=== PATIENT | female | born 1995 | race Caucasian/White ===

== ENCOUNTER 2017-02-05 10:58 | Emergency (ER) | payer BC, OTHER ==
[~2017-02-05] VITALS: Ht 162.6 cm; Wt 69.1 kg
[~2017-02-05 10:58] MED LIST: ACYC-114 PO; ACYC-57 PO; CIPR500T87 PO; DOCU-30 PO; DOXY100V9; ETOD400T PO; FERR325T20 PO; HYDR1TAB19; IBUP-1222 PO; IBUP800T PO; INSU100C5 SQ; INSU100I11; INSU100I13; INSU100V8 SQ; NORG1TAB31 PO; ONDA4TAB10 PO; OXYC-302 PO; OXYC1TAB7 PO; PREN1TAB56 PO; SERT50TA PO; VANC1VIA3 PO
[2017-02-05 11:51] LABS: HEMOGLOBIN 13.9 g/dL (11.7-16.4)
[2017-02-05] MEDS ORDERED: METOCLOPRAMIDE 5 MG/ML, 2ML ONE (11:53)
[2017-02-05] MEDS ORDERED: DIPHENHYDRAMINE 50 MG/ML, 1ML ONE (11:53)
[2017-02-05] MEDS ORDERED: DIPHENHYDRAMINE 50 MG/ML, 1ML IVPush ONE (12:00)
[2017-02-05] MEDS ORDERED: SODIUM CHLORIDE FLUSH 10ML SYR IVF ONE (12:00)
[2017-02-05] MEDS ORDERED: METOCLOPRAMIDE 5 MG/ML, 2ML IVPush ONE (12:00)
[2017-02-05] MEDS ORDERED: SODIUM CHLORIDE 0.9% 1,000ML IVBOLUS ONE (12:00)
[2017-02-05 12:04] LABS: BLOOD UREA NITROGEN 6 mg/dL (7-18)
[2017-02-05] MEDS ORDERED: INSU100V9 SC (13:29)
[2017-02-05 13:30] VITALS: BP 131/85
== END 2017-02-05 14:07 | disposition home or self-care (01) ==
LOC: ED 12:49
DX: H53.131 Sudden visual loss, right eye (principal); E11.65 Type 2 diabetes mellitus with hyperglycemia; Z79.4 Long term (current) use of insulin; Z88.6 Allergy status to analgesic agent; Z90.89 Acquired absence of other organs
CPT/HCPCS: 36415; 70450; 80048; 82040; 85025; 93005; 96361; 96374; 96375; 99285; J1200; J2765; J7030

== ENCOUNTER 2017-04-20 09:31 | Emergency (ER) | payer BC ==
[~2017-04-20] VITALS: Ht 162.6 cm; Wt 63.0 kg
[~2017-04-20 09:31] MED LIST changes: +INSU100V9 SC
[2017-04-20] MEDS ORDERED: SODIUM CHLORIDE 0.9% 1,000 ML IV ONE (10:11)
[2017-04-20] MEDS ORDERED: ONDANSETRON 2MG/ML, 2ML IVPush ONE (10:30)
[2017-04-20] MEDS ORDERED: SODIUM CHLORIDE 0.9% 1,000ML IVBOLUS ONE ×2 (10:30→12:00)
[2017-04-20] MEDS ORDERED: SODIUM CHLORIDE FLUSH 10ML SYR IVF ONE (10:30)
[2017-04-20] MEDS ORDERED: HYDROmorphone 1 MG/ML, 1ML ONE ×2 (10:43→11:44)
[2017-04-20] MEDS ORDERED: ONDANSETRON 2MG/ML, 2ML ONE (10:43)
[2017-04-20 10:44] LABS: PH, VENOUS 7.298 pH (7.320-7.420)
[2017-04-20] MEDS: HYDROmorphone 1 MG/ML, 1ML IVPush PRN ×2 (10:50→11:50)
[2017-04-20 10:58] LABS: BLOOD UREA NITROGEN 15 mg/dL (7-18)
[2017-04-20 11:03] LABS: ASPARTATE AMINO TRANSFERASE 14 U/L (15-37)
[2017-04-20 12:55] VITALS: BP 133/84
== END 2017-04-20 12:57 | disposition home or self-care (01) ==
LOC: ED 11:02
DX: E10.43 Type 1 diabetes mellitus with diabetic autonomic (poly)neuropathy (principal); K31.84 Gastroparesis; E09.10 Drug or chemical induced diabetes mellitus with ketoacidosis without coma; R11.2 Nausea with vomiting, unspecified; E86.0 Dehydration; Z90.49 Acquired absence of other specified parts of digestive tract
CPT/HCPCS: 36415; 80053; 81001; 82010; 82803; 82962; 83690; 84703; 85025; 87086; 96361; 96374; 96375; 96376; 99285; J1170; J2405; J7030

== ENCOUNTER 2018-07-12 21:54 | Emergency (ER) | payer BC ==
[~2018-07-12] VITALS: Ht 162.6 cm; Wt 68.0 kg
[~2018-07-12 21:54] MED LIST changes: +DOCU-131 PO; -DOCU-30 PO; +FERR325T18 PO; -FERR325T20 PO; +IBUP-1223 PO; -IBUP800T PO
[2018-07-12 22:40] LABS: BASOPHILS % (AUTO) 0 % (0-1); EOSINOPHILS # (AUTO) 0.24 x10^3/uL (0-0.4); EOSINOPHILS % (AUTO) 2 % (1-7); LYMPHOCYTES # (AUTO) 2.08 x10^3/uL (1-3.4); LYMPHOCYTES % (AUTO) 13 % (22-44); MD NO; MEAN CORPUSCULAR HEMOGLOBIN 30.3 pg (27.0-34.8); MEAN CORPUSCULAR HGB CONC 34.6 g/dL (32.4-35.8); MEAN CORPUSCULAR VOLUME 87.4 fL (80-100); MEAN PLATELET VOLUME 7.3 fL (7.4-10.4); MONOCYTES # (AUTO) 0.81 x10^3/uL (0.2-0.8); MONOCYTES % (AUTO) 5 % (2-9); NEUTROPHILS # (AUTO) 12.79 x10^3/uL (1.8-6.8); NEUTROPHILS % (AUTO) 80 % (42-75); PLATELET COUNT 446 x10^3/uL (130-400); RED BLOOD COUNT 4.57 x10^6/uL (3.82-5.3); RED CELL DISTRIBUTION WIDTH 12.8 % (9.6-15.2)
[2018-07-12 22:51] LABS: ALBUMIN 3.3 g/dL (3.4-5.0); ANION GAP 5 mmol/L (5-15); CALCIUM 8.7 mg/dL (8.5-10.1); CHLORIDE 107 mmol/L (98-107); CREATININE 0.69 mg/dL (0.55-1.02)
[2018-07-12 22:55] LABS: TROPONIN I < 0.015 ng/mL (0.000-0.045)
[2018-07-12] MEDS ORDERED: ONDANSETRON ODT 4 MG ONE (23:51)
[2018-07-12] MEDS ORDERED: DIPHENHYDRAMINE 25 MG CAPSULE ONE (23:51)
[2018-07-12] MEDS ORDERED: KETOROLAC 30 MG/1 ML ONE (23:51)
[2018-07-12 23:57] VITALS: BP 140/99
[2018-07-13] MEDS ORDERED: KETOROLAC 30 MG/1 ML IM ONE
[2018-07-13] MEDS ORDERED: ONDANSETRON ODT 4 MG PO ONE
[2018-07-13] MEDS ORDERED: DIPHENHYDRAMINE 25 MG CAPSULE PO ONE
[2018-07-14] MEDS ORDERED: CEFD300C37 PO (14:32)
[2018-07-14] MEDS ORDERED: AZIT500T PO (14:32)
[2018-07-14] MEDS ORDERED: GUAI200T3 PO (14:32)
[2018-07-14] MEDS ORDERED: ACET325T14 PO (14:32)
[2018-07-14] MEDS ORDERED: BENZ-17 PO (14:32)
== END 2018-07-13 00:56 | disposition home or self-care (01) ==
LOC: ED 07-13 00:55
DX: R07.89 Other chest pain (principal); J18.9 Pneumonia, unspecified organism; G43.909 Migraine, unspecified, not intractable, without status migrainosus; E11.9 Type 2 diabetes mellitus without complications; Z88.5 Allergy status to narcotic agent; Z88.1 Allergy status to other antibiotic agents; Z88.8 Allergy status to other drugs, medicaments and biological substances
CPT/HCPCS: 71045; 80048; 82040; 82962; 84484; 85025; 93005; 96372; 99285; J1885; Q0162; Q0163

== ENCOUNTER 2018-07-13 10:24 | Inpatient (IN) | payer BC ==
[~2018-07-13] VITALS: Ht 162.6 cm; Wt 68.1 kg
[2018-07-13 11:06] LABS: MICROSCOPIC INDICATED
[2018-07-13] MEDS ORDERED: KETOROLAC 30 MG/1 ML IVPush ONE (11:30)
[2018-07-13] MEDS ORDERED: PROMETHAZINE 25 MG/ML, 1ML IM ONE (11:30)
[2018-07-13] MEDS ORDERED: PROMETHAZINE 25 MG/ML, 1ML ONE (11:31)
[2018-07-13] MEDS ORDERED: KETOROLAC 30 MG/1 ML ONE (11:32)
[2018-07-13 11:48] LABS: PH, VENOUS 7.391 pH (7.320-7.420)
[2018-07-13 11:49] LABS: FIO2 NOT DOCUMENTED %
[2018-07-13 12:03] LABS: ALBUMIN 3.3 g/dL (3.4-5.0); ANION GAP 8 mmol/L (5-15); BASOPHILS # (AUTO) 0.02 x10^3/uL (0-0.1); BASOPHILS % (AUTO) 0 % (0-1); CALCIUM 8.2 mg/dL (8.5-10.1); CHLORIDE 107 mmol/L (98-107); EOSINOPHILS # (AUTO) 0.13 x10^3/uL (0-0.4); EOSINOPHILS % (AUTO) 1 % (1-7); LYMPHOCYTES # (AUTO) 0.95 x10^3/uL (1-3.4); LYMPHOCYTES % (AUTO) 7 % (22-44); MD NO; MEAN CORPUSCULAR HEMOGLOBIN 30.3 pg (27.0-34.8); MEAN CORPUSCULAR HGB CONC 34.4 g/dL (32.4-35.8); MEAN CORPUSCULAR VOLUME 88.1 fL (80-100); MEAN PLATELET VOLUME 7.8 fL (7.4-10.4); MONOCYTES % (AUTO) 7 % (2-9); NEUTROPHILS # (AUTO) 11.99 x10^3/uL (1.8-6.8); NEUTROPHILS % (AUTO) 85 % (42-75); PLATELET COUNT 442 x10^3/uL (130-400); RED BLOOD COUNT 4.84 x10^6/uL (3.82-5.3); RED CELL DISTRIBUTION WIDTH 13.3 % (9.6-15.2)
[2018-07-13 12:04] LABS: ALANINE AMINOTRANSFERASE 18 U/L (12-78); CREATININE 0.77 mg/dL (0.55-1.02)
[2018-07-13 12:06] LABS: ALKALINE PHOSPHATASE 88 U/L (45-117); BILIRUBIN,TOTAL 0.4 mg/dL (0.2-1.0); TOTAL PROTEIN 7.4 g/dL (6.4-8.2)
[2018-07-13 12:17] LABS: ACETONE, SERUM Small (20mg/dL) mg/dL (Negative)
[2018-07-13] MEDS ORDERED: HYDROmorphone 2 MG/ML, 1ML ONE (12:39)
[2018-07-13] MEDS: HYDROmorphone 2 MG/ML, 1ML IVPush PRN ×2 (12:47→13:50)
[2018-07-13] MEDS ORDERED: OMNIPAQUE 350 MG/ML, 100ML BOTTLE ONE (13:17)
[2018-07-13] MEDS ORDERED: CEFTRIAXONE PMX 1GM/50ML 50 ML ONE (13:43)
[2018-07-13] MEDS ORDERED: CEFTRIAXONE 1,000 MG in SODIUM CHLORIDE 0.9% 50 ML IV ONE (14:00)
[2018-07-13] MEDS ORDERED: SODIUM CHLORIDE 0.9% 1,000ML IVBOLUS ONE (14:00)
[2018-07-13] MEDS ORDERED: AZITHROMYCIN 500 MG in SODIUM CHLORIDE 0.9% 250 ML IV ONE (14:00)
[2018-07-13] MEDS ORDERED: BENZONATATE 100 MG CAPSULE PO PRN (14:30)
[2018-07-13] MEDS ORDERED: PHARMACY MAY ADJ FOR RENAL FX MC PRN (14:30)
[2018-07-13] MEDS ORDERED: DOCUSATE 100 MG CAPSULE PO PRN (14:30)
[2018-07-13] MEDS ORDERED: ACETAMINOPHEN 325 MG TABLET PO PRN (14:30)
[2018-07-13] MEDS ORDERED: ONDANSETRON 2MG/ML, 2ML IVPB PRN (14:30)
[2018-07-13] MEDS ORDERED: PROMETHAZINE 12.5 MG SUPP PR PRN (14:30)
[2018-07-13] MEDS ORDERED: CEFTRIAXONE 1,000 MG in SODIUM CHLORIDE 0.9% 50 ML IVPB SCH (14:30)
[2018-07-13 14:44] VITALS: BP 120/74
[2018-07-13] MEDS ORDERED: GLUCAGON 1 MG IM PRN (15:00)
[2018-07-13] MEDS ORDERED: DEXTROSE 4 GM TAB.CHEW PO PRN (15:00)
[2018-07-13] MEDS: ENOXAPARIN 40 MG/0.4 ML SQ SCH (15:00)
[2018-07-13] MEDS ORDERED: DEXTROSE 50%, 50ML SYRINGE IVPush PRN (15:00)
[2018-07-13] MEDS: LIDODERM 5% PATCH TD SCH (15:53)
[2018-07-13] MEDS: KETOROLAC 30 MG/1 ML IVPush PRN ×2 (15:53→23:02)
[2018-07-13] MEDS: INSULIN LISPRO 100 UNITS/ML, PEN SQ-INSULIN SCH ×2 (16:00→20:48)
[2018-07-13] MEDS ORDERED: DIPHENHYDRAMINE 50 MG/ML, 1ML IVPush PRN (16:30)
[2018-07-13] MEDS ORDERED: MAGNESIUM SULFATE PMX 2GM/50ML 50 ML IV ONE (17:00)
[2018-07-13] MEDS: SODIUM CHLORIDE 0.9% 1,000 ML IV SCH ×2 (17:48→23:05)
[2018-07-13] MEDS: GUAIFENESIN 200 MG TABLET PO SCH ×2 (17:48→20:48)
[2018-07-13 18:37] VITALS: BP 112/76
[2018-07-13 19:20] VITALS: BP 120/74
[2018-07-13] MEDS: SODIUM CHLORIDE NASAL SPRAY 45ML BOTTLE NAS SCH (20:48)
[2018-07-13] MEDS: SODIUM CHLORIDE FLUSH 10ML SYR IVF SCH (20:48)
[2018-07-13] MEDS: METHOCARBAMOL 500 MG TABLET PO PRN (20:55)
[2018-07-13] MEDS ORDERED: INSULIN GLARGINE 100 UNITS/ML, PEN SQ-INSULIN SCH (21:00)
[2018-07-14 01:43] VITALS: BP 115/64
[2018-07-14 05:17] LABS: ANION GAP 8 mmol/L (5-15); CALCIUM 7.1 mg/dL (8.5-10.1); CHLORIDE 108 mmol/L (98-107)
[2018-07-14 05:18] LABS: CREATININE 0.61 mg/dL (0.55-1.02)
[2018-07-14 05:22] LABS: BASOPHILS # (AUTO) 0.02 x10^3/uL (0-0.1); BASOPHILS % (AUTO) 0 % (0-1); EOSINOPHILS # (AUTO) 0.42 x10^3/uL (0-0.4); EOSINOPHILS % (AUTO) 5 % (1-7); LYMPHOCYTES # (AUTO) 1.72 x10^3/uL (1-3.4); LYMPHOCYTES % (AUTO) 19 % (22-44); MD NO; MEAN CORPUSCULAR HEMOGLOBIN 30.3 pg (27.0-34.8); MEAN CORPUSCULAR HGB CONC 33.7 g/dL (32.4-35.8); MEAN CORPUSCULAR VOLUME 89.9 fL (80-100); MEAN PLATELET VOLUME 7.4 fL (7.4-10.4); MONOCYTES # (AUTO) 0.89 x10^3/uL (0.2-0.8); MONOCYTES % (AUTO) 10 % (2-9); NEUTROPHILS # (AUTO) 6.15 x10^3/uL (1.8-6.8); NEUTROPHILS % (AUTO) 67 % (42-75); PLATELET COUNT 374 x10^3/uL (130-400); RED BLOOD COUNT 3.92 x10^6/uL (3.82-5.3); RED CELL DISTRIBUTION WIDTH 13.5 % (9.6-15.2)
[2018-07-14] MEDS: METHOCARBAMOL 500 MG TABLET PO PRN ×2 (05:24→11:26)
[2018-07-14] MEDS: GUAIFENESIN 200 MG TABLET PO SCH ×3 (05:24→16:00)
[2018-07-14] MEDS: SODIUM CHLORIDE 0.9% 1,000 ML IV SCH (05:28)
[2018-07-14] MEDS: KETOROLAC 30 MG/1 ML IVPush PRN ×2 (05:28→11:26)
[2018-07-14] MEDS: INSULIN LISPRO 100 UNITS/ML, PEN SQ-INSULIN SCH ×3 (07:00→16:00)
[2018-07-14] MEDS: SODIUM CHLORIDE FLUSH 10ML SYR IVF SCH (08:16)
[2018-07-14] MEDS: SODIUM CHLORIDE NASAL SPRAY 45ML BOTTLE NAS SCH (08:16)
[2018-07-14 08:30] VITALS: BP 108/73
[2018-07-14] MEDS ORDERED: POTASSIUM CHLORIDE 20 MEQ TAB.ER.PRT PO ONE (10:00)
[2018-07-14] MEDS ORDERED: AZITHROMYCIN 500 MG in SODIUM CHLORIDE 0.9% 250 ML IV SCH (14:30)
[2018-07-14] MEDS ORDERED: CEFD300C37 PO (14:32)
[2018-07-14] MEDS ORDERED: AZIT500T PO (14:32)
[2018-07-14] MEDS ORDERED: ACET325T14 PO (14:32)
[2018-07-14] MEDS ORDERED: BENZ-17 PO (14:32)
[2018-07-14] MEDS ORDERED: GUAI200T3 PO (14:32)
[2018-07-14] MEDS: ENOXAPARIN 40 MG/0.4 ML SQ SCH (15:00)
[2018-07-14] MEDS: LIDODERM 5% PATCH TD SCH (15:00)
== END 2018-07-14 16:05 | disposition home or self-care (01) | DRG 871 ==
LOC: ED 11:14 → 3NE 13:46 → DCLOUNGE 07-14 15:53
PROVIDERS: ADMIT Hospitalist; ATTEND Hospitalist
DX: A41.9 Sepsis, unspecified organism (principal); J18.1 Lobar pneumonia, unspecified organism; E10.319 Type 1 diabetes mellitus with unspecified diabetic retinopathy without macular edema; E86.0 Dehydration; E87.6 Hypokalemia; F12.90 Cannabis use, unspecified, uncomplicated; E10.42 Type 1 diabetes mellitus with diabetic polyneuropathy; I73.00 Raynaud's syndrome without gangrene; G43.909 Migraine, unspecified, not intractable, without status migrainosus; M54.5 Low back pain; R09.02 Hypoxemia; Z79.4 Long term (current) use of insulin; Z82.49 Family history of ischemic heart disease and other diseases of the circulatory system; Z83.3 Family history of diabetes mellitus; Z88.5 Allergy status to narcotic agent; Z88.1 Allergy status to other antibiotic agents; Z88.8 Allergy status to other drugs, medicaments and biological substances
CPT/HCPCS: 36415; 71045; 71275; 80048; 80053; 81001; 82010; 82803; 82962; 83605; 83690; 83735; 84145; 85025; 87040; 93005; 96365; 96372; 96375; 99285; G0378; J0456; J0696; J1170; J1885; J2550; Q9967; J1200; J1815; J3475; J7030; J7050

== ENCOUNTER 2018-11-24 04:53 | Emergency (ER) | payer SELFPAY ==
[~2018-11-24] VITALS: Ht 162.6 cm; Wt 65.0 kg
[~2018-11-24 04:53] MED LIST changes: +ACET325T14 PO; +AZIT500T PO; +BENZ-17 PO; +CEFD300C37 PO; +GUAI200T3 PO
[2018-11-24] MEDS ORDERED: SODIUM CHLORIDE 0.9% 1,000ML IVBOLUS ONE (05:00)
[2018-11-24] MEDS ORDERED: SODIUM CHLORIDE FLUSH 10ML SYR IVF ONE (05:00)
[2018-11-24] MEDS ORDERED: ONDANSETRON 2MG/ML, 2ML IVPush ONE (05:00)
[2018-11-24] MEDS ORDERED: FAMOTIDINE 20 MG/2 ML IVP ONE (05:00)
[2018-11-24] MEDS ORDERED: TRAM50TA2 PO (05:11)
[2018-11-24] MEDS ORDERED: SUMA100T3 PO (05:11)
[2018-11-24] MEDS ORDERED: INSU100I32 INJ (05:11)
[2018-11-24] MEDS ORDERED: FAMOTIDINE 20 MG/2 ML ONE (05:17)
[2018-11-24] MEDS ORDERED: ONDANSETRON 2MG/ML, 2ML ONE (05:17)
[2018-11-24 05:22] LABS: PH, VENOUS 7.275 pH (7.320-7.420)
--- NOTE | 2018-11-24 05:27 | NUR ---
PT HERE FOR MIGRAINE AND LUQ PAIN THAT STARTED THIS MORNING WITH N/V. PT MEDICATED WITH 100 MC FENTYNAL, 25 MG PHENERGAN AND 500 ML NS. 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 HR ELEVATED. PT IS NO LONGER VOMITING BUT RATES PAIN /10. NS BOLUS RUNNING AND PT MEDICATED. TECH AT BEDSIDE. CALL LIGHT IN REACH.
[2018-11-24 05:34] LABS: ALBUMIN 3.1 g/dL (3.4-5.0); ANION GAP 9 mmol/L (5-15); CALCIUM 7.7 mg/dL (8.5-10.1); CHLORIDE 108 mmol/L (98-107)
[2018-11-24 05:37] LABS: ALANINE AMINOTRANSFERASE 15 U/L (12-78); ALKALINE PHOSPHATASE 105 U/L (45-117); BILIRUBIN,TOTAL 0.2 mg/dL (0.2-1.0); CREATININE 0.73 mg/dL (0.55-1.02); TOTAL PROTEIN 6.4 g/dL (6.4-8.2)
[2018-11-24 06:10] LABS: ACETONE, SERUM Small (20mg/dL) mg/dL (Negative)
--- NOTE | 2018-11-24 06:23 | NUR ---
PT RESTING. LAB AT BEDSIDE TO REDRAW. CALL LIGHT IN REACH
[2018-11-24 06:35] LABS: BASOPHILS # (AUTO) 0.05 x10^3/uL (0-0.1); BASOPHILS % (AUTO) 0 % (0-1); EOSINOPHILS # (AUTO) 0.06 x10^3/uL (0-0.4); EOSINOPHILS % (AUTO) 0 % (1-7); LYMPHOCYTES # (AUTO) 1.04 x10^3/uL (1-3.4); LYMPHOCYTES % (AUTO) 6 % (22-44); MD NO; MEAN CORPUSCULAR HGB CONC 34.6 g/dL (32.4-35.8); MEAN CORPUSCULAR VOLUME 86.7 fL (80-100); MONOCYTES # (AUTO) 1.17 x10^3/uL (0.2-0.8); MONOCYTES % (AUTO) 7 % (2-9); NEUTROPHILS # (AUTO) 15.67 x10^3/uL (1.8-6.8); NEUTROPHILS % (AUTO) 87 % (42-75); PLATELET COUNT 335 x10^3/uL (130-400); RED BLOOD COUNT 4.51 x10^6/uL (3.82-5.3); RED CELL DISTRIBUTION WIDTH 12.8 % (9.6-15.2)
[2018-11-24] MEDS ORDERED: METOCLOPRAMIDE 5 MG/ML, 2ML ONE (06:44)
[2018-11-24] MEDS ORDERED: METOCLOPRAMIDE 5 MG/ML, 2ML IVPush ONE (07:00)
--- NOTE | 2018-11-24 07:05 | NUR ---
REPORT FROM DENISHA RAYO. PT IS RESTING IN BED WITH EYES CLOSED, RESPIRATIONS EQUAL AND NON LABORED. NAD. PT IS CONNECTED TO THE MONITOR. CALL LIGHT WITHIN REACH.
--- NOTE | 2018-11-24 07:16 | NUR ---
PT TAKEN TO CT.
[2018-11-24] MEDS ORDERED: OMNIPAQUE 350 MG/ML, 100ML BOTTLE ONE (07:30)
--- NOTE | 2018-11-24 07:31 | NUR ---
PT IS RESTING IN BED, WITH EYES CLOSED, RESPIRATIONS EQUAL AND NON LABORED. NAD. PT IS CONNECTED TO THE MONITOR. CALL LIGHT WITHIN REACH. REMINDED PT THE NEED FOR A URINE SAMPE. PT WILL CALL WHEN SHE IS READY.
--- NOTE | 2018-11-24 07:51 | NUR ---
PA AT BEDSIDE.
--- NOTE | 2018-11-24 07:53 | NUR ---
PT AMBULATED TO THE BATHROOM WITH STEADY GAIT, TO PROVIDE A SAMPLE.
[2018-11-24 08:09] LABS: MICROSCOPIC AUTO
[2018-11-24 08:12] LABS: CULTURE INDICATED? YES
[2018-11-24 08:33] VITALS: BP 115/78
--- NOTE | 2018-11-24 08:33 | NUR ---
PT IS RESTING IN BED, WITH EYES CLOSED, RESPIRATIONS EQUAL AND NON LABORED. NAD. PT IS CONNECTED TO THE MONITOR. CALL LIGHT WITHIN REACH.
--- NOTE | 2018-11-24 08:40 | NUR ---
PA AT BEDSIDE.
--- NOTE | 2018-11-24 09:14 | NUR ---
Patient given discharge instructions and they have confirmed that they understand the instructions. Patient ambulatory with steady gait.
== END 2018-11-24 09:17 | disposition home or self-care (01) ==
LOC: ED 09:10
DX: K59.00 Constipation, unspecified (principal); E11.65 Type 2 diabetes mellitus with hyperglycemia; R11.2 Nausea with vomiting, unspecified; G43.909 Migraine, unspecified, not intractable, without status migrainosus; Z79.899 Other long term (current) drug therapy; Z79.4 Long term (current) use of insulin; Z88.0 Allergy status to penicillin; Z98.51 Tubal ligation status; Z90.89 Acquired absence of other organs; Z88.5 Allergy status to narcotic agent
CPT/HCPCS: 36415; 74177; 76700; 80053; 81001; 82010; 82803; 83690; 84703; 85025; 87086; 93005; 96361; 96374; 96375; 99284; J2405; J2765; J3490; J7030; Q9967

== ENCOUNTER 2019-01-15 10:32 | Emergency (ER) | payer MEDICAID ==
[~2019-01-15] VITALS: Ht 162.6 cm; Wt 63.0 kg
[~2019-01-15 10:32] MED LIST changes: +INSU100I32 INJ; +SUMA100T3 PO; +TRAM50TA2 PO
--- NOTE | 2019-01-15 12:10 | NUR ---
PT AMBULATORY TO ROOM FROM LOBBY
[2019-01-15] MEDS ORDERED: PROM25SU34 RC (12:18)
[2019-01-15] MEDS ORDERED: AMOX-291 PO (12:18)
--- NOTE | 2019-01-15 12:20 | NUR ---
PT TO ED FOR RIGHT SIDED DENTAL PAIN X2 WEEKS AND RIGHT SIDED FACIAL SWELLING SINCE THIS AM. PT STATES SHE SAW DENTIST 2 WEEKS AGO FOR PAIN AND HAS PLANNED EXTRACTION OF 2 MOLARS SCHEDULED FOR WEDNESDAY. PT HAS BEEN ON AMOXICILLIN 500MG TID X4 DAYS. PT STATES WOKE UP WITH RIGHT SIDED FACIAL SWELLING AND CALLED DENTIST. SENTISE STATED PT NEEDED TO BE SEEN IN ER BECAUSE SHE IS TYPE 1 DM. CONNECTED TO MONITORS. VSS. CALL LIGHT WITHIN REACH. EDMD TO BEDSIDE FOR ASSESSMENT. AWAITING ORDERS.
[2019-01-15 12:24] VITALS: BP 151/101
[2019-01-15] MEDS ORDERED: HYDROmorphone 1 MG/ML, 1ML ONE (12:30)
[2019-01-15] MEDS ORDERED: AMPICILLIN/SULBACTAM 3 GM in SODIUM CHLORIDE 0.9% 100 ML IV ONE ×2 (12:30→12:34)
[2019-01-15] MEDS ORDERED: SODIUM CHLORIDE FLUSH 10ML SYR IVF ONE (12:30)
[2019-01-15] MEDS ORDERED: ONDANSETRON 2MG/ML, 2ML ONE (12:30)
[2019-01-15] MEDS ORDERED: HYDROmorphone 2 MG/ML, 1ML IVPush ONE (12:30)
[2019-01-15] MEDS ORDERED: ONDANSETRON 2MG/ML, 2ML IVPush ONE (12:30)
--- NOTE | 2019-01-15 12:46 | NUR ---
PT RESTING IN ROOM. NO NEEDS AT THIS TIME. VSS. IV ESTABLISHED. MEDICATED PER DEC.
== END 2019-01-15 14:26 | disposition home or self-care (01) ==
LOC: ED 13:32
DX: K04.7 Periapical abscess without sinus (principal); E10.9 Type 1 diabetes mellitus without complications
CPT/HCPCS: 41800; 96365; 96375; 99283; J0295; J1170; J2405

== ENCOUNTER 2019-02-15 10:29 | Emergency (ER) | payer MEDICAID ==
[~2019-02-15] VITALS: Ht 162.6 cm; Wt 63.5 kg
[~2019-02-15 10:29] MED LIST changes: +AMOX-291 PO; +PROM25SU34 RC
[2019-02-15] MEDS ORDERED: METOCLOPRAMIDE 5 MG/ML, 2ML IVPush ONE (11:30)
[2019-02-15] MEDS ORDERED: KETOROLAC 30 MG/1 ML IVPush ONE (11:30)
[2019-02-15] MEDS ORDERED: SODIUM CHLORIDE FLUSH 10ML SYR IVF ONE (11:30)
[2019-02-15] MEDS ORDERED: SODIUM CHLORIDE 0.9% 1,000ML IVBOLUS ONE (11:30)
[2019-02-15] MEDS ORDERED: KETOROLAC 30 MG/1 ML ONE (11:39)
[2019-02-15] MEDS ORDERED: METOCLOPRAMIDE 5 MG/ML, 2ML ONE (11:39)
[2019-02-15 11:49] LABS: BASOPHILS # (AUTO) 0.02 x10^3/uL (0-0.1); BASOPHILS % (AUTO) 0 % (0-1); EOSINOPHILS # (AUTO) 0.16 x10^3/uL (0-0.4); EOSINOPHILS % (AUTO) 2 % (1-7); LYMPHOCYTES # (AUTO) 1.89 x10^3/uL (1-3.4); LYMPHOCYTES % (AUTO) 17 % (22-44); MD NO; MEAN CORPUSCULAR HEMOGLOBIN 29.1 pg (27.0-34.8); MEAN CORPUSCULAR HGB CONC 33.2 g/dL (32.4-35.8); MEAN CORPUSCULAR VOLUME 87.5 fL (80-100); MEAN PLATELET VOLUME 7.6 fL (7.4-10.4); MONOCYTES # (AUTO) 0.72 x10^3/uL (0.2-0.8); MONOCYTES % (AUTO) 7 % (2-9); NEUTROPHILS # (AUTO) 8.15 x10^3/uL (1.8-6.8); NEUTROPHILS % (AUTO) 74 % (42-75); PLATELET COUNT 520 x10^3/uL (130-400); RED BLOOD COUNT 4.84 x10^6/uL (3.82-5.3); RED CELL DISTRIBUTION WIDTH 11.9 % (9.6-15.2)
--- NOTE | 2019-02-15 11:50 | NUR ---
IV PLACED, BC X 1 DRAWN WITH START. TECHNICAL SYSTEMS ARCHITECT DIPTI OTHER LABS AND OTHER BC. URINE COLLECTED/SENT TO LAB. IVF BOLUS INFUSING, MEDS GIVEN PER ERP ORDER FOR NAUSEA AND DOBBINS RATED 10/10. BP CUFF, PULSE OX IN PLACE. CALL LIGHT WITHIN REACH, WARM BLANKET PROVIDED. LIGHTS DIMMED, DOOR CLOSED PER PT REQUEST.
[2019-02-15 11:56] LABS: ALANINE AMINOTRANSFERASE 16 U/L (12-78); ALBUMIN 3.2 g/dL (3.4-5.0); ANION GAP 7 mmol/L (5-15); CHLORIDE 106 mmol/L (98-107); CREATININE 0.64 mg/dL (0.55-1.02)
[2019-02-15 12:06] LABS: MICROSCOPIC INDICATED
[2019-02-15 12:08] LABS: CULTURE INDICATED? YES
[2019-02-15 12:10] LABS: ALKALINE PHOSPHATASE 99 U/L (45-117); BILIRUBIN,TOTAL 0.2 mg/dL (0.2-1.0); TOTAL PROTEIN 6.8 g/dL (6.4-8.2)
--- NOTE | 2019-02-15 12:25 | NUR ---
ALL RESULTS BACK, PT FOR RECHECK.
--- NOTE | 2019-02-15 13:07 | NUR ---
ERP IN TO RECHECK PT .
[2019-02-15 13:21] VITALS: BP 96/58
--- NOTE | 2019-02-15 13:21 | NUR ---
PT WITH DECREASED DOBBINS, NO N/V DURING ED STAY.
== END 2019-02-15 13:23 | disposition home or self-care (01) ==
LOC: ED 12:50
DX: R50.9 Fever, unspecified (principal); Z88.5 Allergy status to narcotic agent; Z88.8 Allergy status to other drugs, medicaments and biological substances; E10.9 Type 1 diabetes mellitus without complications
CPT/HCPCS: 36415; 80053; 81001; 83605; 85025; 87040; 87086; 96361; 96374; 96375; 99283; J1885; J2765; J7030

== ENCOUNTER 2020-01-01 21:35 | Inpatient (IN) | payer MEDICAID, OTHER ==
[~2020-01-01] VITALS: Ht 162.6 cm; Wt 62.3 kg
[~2020-01-01 21:35] MED LIST changes: +BUSP7.5T3 PO; +DEXT5TAB23 PO; +DULO20CA18 PO; -GUAI200T3 PO; +GUAI200T37 PO; +LORA0.5T PO; +METO10TA82 PO; +PANT40TA5 PO
[2020-01-01] MEDS ORDERED: SODIUM CHLORIDE 0.9% 1,000ML IVBOLUS ONE ×2 (22:00→23:30)
--- NOTE | 2020-01-01 22:09 | NUR ---
PT TO ROOM AT THIS TIME
[2020-01-01] MEDS ORDERED: METOCLOPRAMIDE 5 MG/ML, 2ML IVPush ONE (22:30)
[2020-01-01] MEDS ORDERED: HYDROmorphone 1 MG/ML, 1ML INJ IV ONE (22:30)
[2020-01-01 22:47] LABS: PH, VENOUS 7.187 pH (7.320-7.420)
[2020-01-01 22:50] LABS: BASOPHILS % (AUTO) 1 % (0-1); EOSINOPHILS # (AUTO) 0.07 x10^3/uL (0-0.4); EOSINOPHILS % (AUTO) 1 % (1-7); LYMPHOCYTES # (AUTO) 1.69 x10^3/uL (1-3.4); LYMPHOCYTES % (AUTO) 24 % (22-44); MD NO; MEAN CORPUSCULAR HEMOGLOBIN 30.3 pg (27.0-34.8); MEAN CORPUSCULAR HGB CONC 33.3 g/dL (32.4-35.8); MEAN CORPUSCULAR VOLUME 91.1 fL (80-100); MEAN PLATELET VOLUME 7.9 fL (7.4-10.4); MONOCYTES # (AUTO) 0.43 x10^3/uL (0.2-0.8); MONOCYTES % (AUTO) 6 % (2-9); NEUTROPHILS # (AUTO) 4.86 x10^3/uL (1.8-6.8); NEUTROPHILS % (AUTO) 68 % (42-75); PLATELET COUNT 412 x10^3/uL (130-400); RED BLOOD COUNT 5.29 x10^6/uL (3.82-5.3); RED CELL DISTRIBUTION WIDTH 12.6 % (9.6-15.2)
[2020-01-01] MEDS ORDERED: HYDROmorphone 1 MG/ML, 1ML INJ ONE (22:51)
[2020-01-01] MEDS ORDERED: METOCLOPRAMIDE 5 MG/ML, 2ML ONE (22:51)
[2020-01-01 22:59] LABS: ALANINE AMINOTRANSFERASE 19 U/L (12-78); ALBUMIN 3.6 g/dL (3.4-5.0); ANION GAP 18 mmol/L (5-15); CALCIUM 9.5 mg/dL (8.5-10.1); CHLORIDE 101 mmol/L (98-107); CREATININE 1.24 mg/dL (0.55-1.02)
[2020-01-01 23:01] LABS: ALKALINE PHOSPHATASE 100 U/L (45-117); BILIRUBIN,TOTAL 0.5 mg/dL (0.2-1.0); TOTAL PROTEIN 7.6 g/dL (6.4-8.2)
[2020-01-01 23:32] LABS: MICROSCOPIC AUTO
[2020-01-01 23:33] LABS: CULTURE INDICATED? NO
[2020-01-02 00:11] LABS: ACETONE, SERUM Large (80mg/dL) (Negative)
[2020-01-02] MEDS ORDERED: SODIUM CHLORIDE 0.9% 1,000 ML IV ONE (00:21)
[2020-01-02] MEDS ORDERED: SODIUM CHLORIDE FLUSH 10ML SYR IVF PRN (00:30)
[2020-01-02] MEDS ORDERED: INSULIN REGULAR 100 UNITS/ML, 3ML VIAL IVPush ONE ×2 (01:00→01:30)
[2020-01-02] MEDS ORDERED: INSULIN SINGLE DOSE, ER ONE (01:20)
[2020-01-02] MEDS: D5%-0.45NACL+KCL 20MEQ 1,000 ML IV SCH ×2 (01:26→12:31)
[2020-01-02] MEDS ORDERED: REGULAR INSULIN 100 UNITS in SODIUM CHLORIDE 0.9% 99 ML IV PRN (01:26)
[2020-01-02] MEDS ORDERED: SODIUM CHLORIDE 0.9% 1,000 ML IV SCH (01:26)
[2020-01-02] MEDS ORDERED: hydrALAzine 20 MG/ML, 1ML IVPush PRN (01:30)
[2020-01-02] MEDS ORDERED: BISACODYL 10 MG SUPP PR PRN (01:30)
--- NOTE | 2020-01-02 01:58 | NUR ---
Received report from Delmer RAYO and assumed patient care. At the time spoke with hospitalist regarding plan of care. Received report to administer insulin (changed while RN was at bedside - see eMAR) and administered ordered iv fluids. Patient agreeable, administered. Phlebotomy at bedside at the moment completing ordered blood draw.
[2020-01-02 02:19] LABS: BASOPHILS # (AUTO) 0.04 x10^3/uL (0-0.1); BASOPHILS % (AUTO) 0 % (0-1); EOSINOPHILS # (AUTO) 0.01 x10^3/uL (0-0.4); EOSINOPHILS % (AUTO) 0 % (1-7); LYMPHOCYTES # (AUTO) 0.98 x10^3/uL (1-3.4); LYMPHOCYTES % (AUTO) 9 % (22-44); MD SCAN; MEAN CORPUSCULAR HEMOGLOBIN 30.2 pg (27.0-34.8); MEAN CORPUSCULAR HGB CONC 33.1 g/dL (32.4-35.8); MEAN CORPUSCULAR VOLUME 91.2 fL (80-100); MEAN PLATELET VOLUME 7.6 fL (7.4-10.4); MONOCYTES # (AUTO) 0.08 x10^3/uL (0.2-0.8); MONOCYTES % (AUTO) 1 % (2-9); NEUTROPHILS # (AUTO) 9.48 x10^3/uL (1.8-6.8); NEUTROPHILS % (AUTO) 90 % (42-75); PLATELET COUNT 439 x10^3/uL (130-400); RED BLOOD COUNT 5.27 x10^6/uL (3.82-5.3); RED CELL DISTRIBUTION WIDTH 12.7 % (9.6-15.2)
[2020-01-02 02:25] LABS: ALBUMIN 3.5 g/dL (3.4-5.0); ANION GAP 16 mmol/L (5-15); CALCIUM 8.3 mg/dL (8.5-10.1); CHLORIDE 110 mmol/L (98-107)
[2020-01-02 02:27] LABS: ALANINE AMINOTRANSFERASE 18 U/L (12-78); BILIRUBIN,TOTAL 0.4 mg/dL (0.2-1.0); CHOLESTEROL, TOTAL 244 mg/dL (140-239); CREATININE 1.07 mg/dL (0.55-1.02); TOTAL PROTEIN 7.5 g/dL (6.4-8.2); TRIGLYCERIDES 320 mg/dL (50-200); TROPONIN I < 0.015 ng/mL (0.000-0.045); VLDL CHOLESTEROL 64 mg/dL (0-25)
[2020-01-02 02:33] LABS: ALKALINE PHOSPHATASE 96 U/L (45-117); CHOL/HDL RATIO 7.4; FREE T4 (FREE THYROXINE) 1.03 ng/dL (0.76-1.46); HDL CHOL % 14 % (28-40); HDL CHOLESTEROL (DIRECT) 33 mg/dL (40-60); LDL CHOLESTEROL,CALCULATED 147 mg/dL (54-169); LDL/HDL RATIO 4.5 (0.5-3.0)
[2020-01-02] MEDS ORDERED: POTASSIUM CHLORIDE 30 MEQ in SODIUM CHLORIDE 0.9% 500 ML IV ONE (02:59)
[2020-01-02] MEDS ORDERED: POTASSIUM PHOSPHATE 22 MEQ in SODIUM CHLORIDE 0.9% 500 ML IV ONE (02:59)
[2020-01-02] MEDS ORDERED: MAGNESIUM SULFATE PMX 2GM/50ML 50 ML IVPB ONE (03:00)
[2020-01-02 03:04] LABS: ACETONE, SERUM Large (80mg/dL) (Negative)
[2020-01-02] MEDS ORDERED: MAGNESIUM SULFATE/D5W 100 ML IV ONE (04:30)
[2020-01-02 04:52] LABS: BASOPHILS # (AUTO) 0.04 x10^3/uL (0-0.1); BASOPHILS % (AUTO) 0 % (0-1); EOSINOPHILS # (AUTO) 0.06 x10^3/uL (0-0.4); EOSINOPHILS % (AUTO) 1 % (1-7); LYMPHOCYTES # (AUTO) 1.45 x10^3/uL (1-3.4); LYMPHOCYTES % (AUTO) 14 % (22-44); MD NO; MEAN CORPUSCULAR HEMOGLOBIN 30.9 pg (27.0-34.8); MEAN CORPUSCULAR HGB CONC 33.6 g/dL (32.4-35.8); MEAN CORPUSCULAR VOLUME 91.8 fL (80-100); MEAN PLATELET VOLUME 7.6 fL (7.4-10.4); MONOCYTES # (AUTO) 0.47 x10^3/uL (0.2-0.8); MONOCYTES % (AUTO) 4 % (2-9); NEUTROPHILS # (AUTO) 8.73 x10^3/uL (1.8-6.8); NEUTROPHILS % (AUTO) 81 % (42-75); PLATELET COUNT 400 x10^3/uL (130-400); RED CELL DISTRIBUTION WIDTH 12.7 % (9.6-15.2)
[2020-01-02] MEDS: D5%-0.9% NACL 1,000 ML IV SCH ×3 (04:53→12:30)
[2020-01-02 04:55] VITALS: BP 114/76
[2020-01-02 05:01] LABS: ALBUMIN 3.1 g/dL (3.4-5.0); ANION GAP 18 mmol/L (5-15); CHLORIDE 110 mmol/L (98-107)
[2020-01-02 05:04] LABS: ALANINE AMINOTRANSFERASE 15 U/L (12-78); ALKALINE PHOSPHATASE 86 U/L (45-117); BILIRUBIN,TOTAL 0.4 mg/dL (0.2-1.0); CREATININE 1.03 mg/dL (0.55-1.02); TOTAL PROTEIN 6.8 g/dL (6.4-8.2)
[2020-01-02 07:45] LABS: ANION GAP 13 mmol/L (5-15); CALCIUM 8.1 mg/dL (8.5-10.1); CHLORIDE 113 mmol/L (98-107); CREATININE 1.02 mg/dL (0.55-1.02)
[2020-01-02 07:47] LABS: TROPONIN I < 0.015 ng/mL (0.000-0.045)
[2020-01-02] MEDS: PANTOPROZOLE 40MG TABLET PO SCH (08:31)
[2020-01-02] MEDS: ENOXAPARIN 40 MG/0.4 ML SQ SCH (08:33)
[2020-01-02] MEDS: HYDROmorphone 2 MG/ML, 1ML IVPush PRN ×3 (09:45→22:12)
[2020-01-02] MEDS: ONDANSETRON ODT 4 MG PO PRN ×2 (10:44→15:58)
[2020-01-02 12:43] LABS: ANION GAP 9 mmol/L (5-15); CHLORIDE 117 mmol/L (98-107)
[2020-01-02 12:44] LABS: CREATININE 0.79 mg/dL (0.55-1.02)
[2020-01-02] MEDS ORDERED: INSULIN GLARGINE 100 UNITS/ML, PEN SQ-INSULIN ONE (13:30)
[2020-01-02] MEDS ORDERED: GLUCAGON 1 MG IM PRN (14:00)
[2020-01-02] MEDS ORDERED: DEXTROSE 50%, 50ML SYRINGE IVPush PRN (14:00)
[2020-01-02] MEDS ORDERED: DEXTROSE 4 GM TAB.CHEW PO PRN (14:00)
[2020-01-02] MEDS: SODIUM CHLORIDE 0.9% 1,000 ML IV SCH (15:37)
[2020-01-02] MEDS ORDERED: INSULIN LISPRO 100 UNITS/ML, PEN SQ-INSULIN SCH (16:00)
[2020-01-02] MEDS: ACETAMINOPHEN 325 MG TABLET PO PRN (17:44)
[2020-01-02 20:36] LABS: ANION GAP 10 mmol/L (5-15); CALCIUM 7.7 mg/dL (8.5-10.1); CHLORIDE 110 mmol/L (98-107); CREATININE 0.82 mg/dL (0.55-1.02)
[2020-01-02] MEDS: SODIUM CHLORIDE FLUSH 10ML SYR IVF SCH (21:00)
[2020-01-02] MEDS: INSULIN GLARGINE 100 UNITS/ML, PEN SQ-INSULIN SCH (22:05)
[2020-01-02] MEDS: INSULIN REGULAR 100 UNITS/ML, 3ML VIAL SQ-INSULIN SCH (22:10)
[2020-01-02 23:13] VITALS: BP 132/82
[2020-01-03 00:21] VITALS: BP 113/69
[2020-01-03] MEDS: DIPHENHYDRAMINE 25 MG CAPSULE PO PRN ×2 (00:31→18:05)
[2020-01-03] MEDS: ONDANSETRON ODT 4 MG PO PRN ×2 (00:34→05:43)
[2020-01-03 00:51] LABS: ANION GAP 7 mmol/L (5-15); CALCIUM 7.7 mg/dL (8.5-10.1); CHLORIDE 111 mmol/L (98-107)
[2020-01-03 00:52] LABS: CREATININE 0.83 mg/dL (0.55-1.02)
[2020-01-03] MEDS: SODIUM CHLORIDE 0.9% 1,000 ML IV SCH ×3 (02:00→18:05)
[2020-01-03 04:43] LABS: BASOPHILS # (AUTO) 0.04 x10^3/uL (0-0.1); BASOPHILS % (AUTO) 1 % (0-1); EOSINOPHILS # (AUTO) 0.16 x10^3/uL (0-0.4); EOSINOPHILS % (AUTO) 2 % (1-7); LYMPHOCYTES # (AUTO) 2.14 x10^3/uL (1-3.4); LYMPHOCYTES % (AUTO) 29 % (22-44); MD NO; MEAN CORPUSCULAR HEMOGLOBIN 30.4 pg (27.0-34.8); MEAN CORPUSCULAR HGB CONC 33.1 g/dL (32.4-35.8); MEAN PLATELET VOLUME 7.7 fL (7.4-10.4); MONOCYTES # (AUTO) 0.64 x10^3/uL (0.2-0.8); MONOCYTES % (AUTO) 9 % (2-9); NEUTROPHILS # (AUTO) 4.34 x10^3/uL (1.8-6.8); NEUTROPHILS % (AUTO) 59 % (42-75); PLATELET COUNT 308 x10^3/uL (130-400); RED BLOOD COUNT 3.91 x10^6/uL (3.82-5.3); RED CELL DISTRIBUTION WIDTH 12.8 % (9.6-15.2)
[2020-01-03 04:51] LABS: ALANINE AMINOTRANSFERASE 14 U/L (12-78); ALBUMIN 2.5 g/dL (3.4-5.0); ANION GAP 7 mmol/L (5-15); CALCIUM 7.8 mg/dL (8.5-10.1); CHLORIDE 112 mmol/L (98-107); CREATININE 0.65 mg/dL (0.55-1.02)
[2020-01-03 04:53] LABS: ALKALINE PHOSPHATASE 66 U/L (45-117); BILIRUBIN,TOTAL 0.3 mg/dL (0.2-1.0); TOTAL PROTEIN 5.3 g/dL (6.4-8.2)
[2020-01-03] MEDS: ACETAMINOPHEN 325 MG TABLET PO PRN (05:43)
[2020-01-03] MEDS: INSULIN REGULAR 100 UNITS/ML, 3ML VIAL SQ-INSULIN SCH ×4 (06:14→20:58)
[2020-01-03 07:31] VITALS: BP 110/70
[2020-01-03] MEDS: INSULIN GLARGINE 100 UNITS/ML, PEN SQ-INSULIN SCH ×3 (08:29→20:59)
[2020-01-03] MEDS: ENOXAPARIN 40 MG/0.4 ML SQ SCH (08:30)
[2020-01-03] MEDS: PANTOPROZOLE 40MG TABLET PO SCH (08:30)
[2020-01-03] MEDS: SODIUM CHLORIDE FLUSH 10ML SYR IVF SCH ×2 (08:36→20:48)
[2020-01-03] MEDS ORDERED: IBUPROFEN 200 MG TABLET PO PRN (09:30)
[2020-01-03] MEDS ORDERED: POTASSIUM CHLORIDE 20 MEQ TAB.ER.PRT PO ONE (09:30)
[2020-01-03 15:00] VITALS: BP 124/75
[2020-01-03] MEDS: HYDROcodone/APAP 5/325 TABLET PO PRN (18:05)
[2020-01-03 20:31] VITALS: BP 121/81
[2020-01-03] MEDS: GEMFIBROZIL 600 MG TABLET PO SCH (20:47)
[2020-01-03] MEDS: NEUTRA PHOS K 250 MG TABLET PO SCH (20:47)
[2020-01-03] MEDS: MAGNESIUM CHLORIDE 64 MG TABLET.DR PO SCH (20:47)
[2020-01-04 01:20] VITALS: BP 98/62
[2020-01-04] MEDS: HYDROcodone/APAP 5/325 TABLET PO PRN ×2 (01:26→07:48)
[2020-01-04] MEDS: SODIUM CHLORIDE 0.9% 1,000 ML IV SCH (03:48)
[2020-01-04] MEDS: INSULIN REGULAR 100 UNITS/ML, 3ML VIAL SQ-INSULIN SCH (06:32)
[2020-01-04 06:44] VITALS: BP 110/69
[2020-01-04] MEDS: ENOXAPARIN 40 MG/0.4 ML SQ SCH (07:44)
[2020-01-04] MEDS: PANTOPROZOLE 40MG TABLET PO SCH (07:44)
[2020-01-04] MEDS ORDERED: INSU100I13 SQ-INSULIN ×2 (08:08)
[2020-01-04] MEDS ORDERED: GEMF600T8 PO (08:08)
[2020-01-04] MEDS: SODIUM CHLORIDE FLUSH 10ML SYR IVF SCH (09:00)
[2020-01-04] MEDS ORDERED: INSULIN GLARGINE 100 UNITS/ML, PEN SQ-INSULIN SCH ×2 (09:00→21:00)
[2020-01-04] MEDS: NEUTRA PHOS K 250 MG TABLET PO SCH (09:07)
[2020-01-04] MEDS: GEMFIBROZIL 600 MG TABLET PO SCH (09:07)
[2020-01-04] MEDS: MAGNESIUM CHLORIDE 64 MG TABLET.DR PO SCH (09:07)
== END 2020-01-04 09:22 | disposition home or self-care (01) | DRG 637 ==
LOC: ED 01-02 00:53 → EDIP 01-02 01:26 → CCU 01-02 02:41 → 3N 01-02 23:19 → DCLOUNGE 01-04 09:18
PROVIDERS: ADMIT Hospitalist; ATTEND Hospitalist
DX: E10.10 Type 1 diabetes mellitus with ketoacidosis without coma (principal); N17.0 Acute kidney failure with tubular necrosis; E87.1 Hypo-osmolality and hyponatremia; E10.21 Type 1 diabetes mellitus with diabetic nephropathy; E10.319 Type 1 diabetes mellitus with unspecified diabetic retinopathy without macular edema; E78.1 Pure hyperglyceridemia; E83.39 Other disorders of phosphorus metabolism; E83.42 Hypomagnesemia; E87.6 Hypokalemia; E86.0 Dehydration; F41.9 Anxiety disorder, unspecified; Z79.4 Long term (current) use of insulin; Z91.14 Patient's other noncompliance with medication regimen; Z91.19 Patient's noncompliance with other medical treatment and regimen; Z90.49 Acquired absence of other specified parts of digestive tract; Z98.51 Tubal ligation status; Z88.5 Allergy status to narcotic agent; Z88.8 Allergy status to other drugs, medicaments and biological substances; Z79.899 Other long term (current) drug therapy; Z79.84 Long term (current) use of oral hypoglycemic drugs
CPT/HCPCS: 36415; 36600; 74018; 96374; 96375; 99291; J7042; 71045; 80048; 80053; 80061; 81001; 82010; 82140; 82803; 82962; 83036; 83690; 83735; 83930; 84100; 84439; 84443; 84484; 84703; 85025; 87040; 87081; 93005; G0378; J1170; J1650; J1815; Q0162; J2765; J3480; J7030; J7040; Q0163

== ENCOUNTER 2020-11-04 16:32 | Emergency (ER) | payer OTHER ==
[~2020-11-04] VITALS: Ht 162.6 cm; Wt 62.6 kg
[~2020-11-04 16:32] MED LIST changes: -BUSP7.5T3 PO; +BUSP7.5T5 PO; +GEMF600T8 PO; +INSU100I13 SQ-INSULIN; -PANT40TA5 PO; +PANT40TA6 PO
--- NOTE | 2020-11-04 16:49 | NUR ---
assumed care of pt. pt here with multiple c/o including high BS and stiff neck with flu-like sx. 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 pt A&O x4. no resp. distress. pt ambualted to [facility] jerry sample
--- NOTE | 2020-11-04 17:02 | NUR ---
Dr. Carrasco at bedside for eval
[2020-11-04 17:10] LABS: HCG UR SG 1.036 (1.003-1.030); MICROSCOPIC AUTO
--- NOTE | 2020-11-04 17:11 | NUR ---
Dr. Carrasco has collected COVID swab and flu swab at bedside
[2020-11-04 17:13] LABS: BASOPHILS % (AUTO) 1 % (0-1); EOSINOPHILS % (AUTO) 3 % (1-7); LYMPHOCYTES % (AUTO) 30 % (22-44); MEAN CORPUSCULAR HEMOGLOBIN 31.9 pg (27.0-34.8); MEAN CORPUSCULAR HGB CONC 34.7 g/dL (32.4-35.8); MEAN PLATELET VOLUME 7.8 fL (7.4-10.4); MONOCYTES % (AUTO) 10 % (2-9); NEUTROPHILS % (AUTO) 57 % (42-75); PLATELET COUNT 435 x10^3/uL (130-400)
--- NOTE | 2020-11-04 17:14 | NUR ---
CXR at bedside
[2020-11-04] MEDS ORDERED: DIPHENHYDRAMINE 50 MG/ML, 1ML ONE (17:16)
[2020-11-04] MEDS ORDERED: METOCLOPRAMIDE 5 MG/ML, 2ML ONE (17:16)
[2020-11-04] MEDS ORDERED: KETOROLAC 30 MG/1 ML ONE ×2 (17:16→19:44)
[2020-11-04 17:19] LABS: ALBUMIN 3.2 g/dL (3.4-5.0); ANION GAP 8 mmol/L (5-15); CALCIUM 8.3 mg/dL (8.5-10.1); CHLORIDE 92 mmol/L (98-107)
[2020-11-04 17:22] LABS: MD NO
[2020-11-04 17:27] LABS: ALKALINE PHOSPHATASE 196 U/L (45-117); BILIRUBIN,TOTAL 0.4 mg/dL (0.2-1.0); CREATININE 1.02 mg/dL (0.55-1.02)
[2020-11-04] MEDS ORDERED: METOCLOPRAMIDE 5 MG/ML, 2ML IVPush ONE (17:30)
[2020-11-04] MEDS ORDERED: SODIUM CHLORIDE 0.9% 1,000ML IVBOLUS ONE ×2 (17:30→19:30)
[2020-11-04] MEDS ORDERED: KETOROLAC 30 MG/1 ML IVPush ONE ×2 (17:30→19:30)
[2020-11-04] MEDS ORDERED: DIPHENHYDRAMINE 50 MG/ML, 1ML IVPush ONE (17:30)
[2020-11-04] MEDS ORDERED: INSU100I32 SQ (17:32)
[2020-11-04] MEDS ORDERED: INSU100V33 SQ (17:32)
--- NOTE | 2020-11-04 17:39 | NUR ---
lab has been to bedside for draw. pt has been medicated for pain and nausea. pt advised nto to drive after benadryl. pt verbalized understanding. pt positioning for comfort. no famiy at bedside
[2020-11-04 17:41] LABS: PH, VENOUS 7.384 pH (7.320-7.420)
[2020-11-04 17:45] LABS: FIO2 ROOM AIR %
[2020-11-04 17:57] LABS: ACETONE, SERUM Small (20mg/dL) (Negative)
[2020-11-04 18:02] LABS: RAPID INFLUENZA A Negative (Negative); RAPID INFLUENZA B Negative (Negative)
--- NOTE | 2020-11-04 18:20 | NUR ---
pt reports significant reduction in pain and nausea after meds. states that she is feeling much better. pt has no vomiting. no new c/o. resting on gurney in position of comfort. awaiting test results. pt updated on POC
[2020-11-04 18:21] LABS: ALANINE AMINOTRANSFERASE 30 U/L (12-78)
[2020-11-04 18:22] LABS: TOTAL PROTEIN 7.2 g/dL (6.4-8.2)
--- NOTE | 2020-11-04 18:48 | NUR ---
REPORT RECIEVED FROM PERRI PAYAN
--- NOTE | 2020-11-04 18:48 | NUR ---
pt resting. no new c/o. no apparent distress. report to Gina RAYO
[2020-11-04] MEDS ORDERED: INSULIN SINGLE DOSE, ER ONE (18:54)
[2020-11-04] MEDS ORDERED: INSULIN REGULAR 100 UNITS/ML, 3ML VIAL IVPush ONE (19:00)
--- NOTE | 2020-11-04 19:06 | NUR ---
pt states feeling much better. pt given iv insulin per order. blood sugar taken and high on monitor, will reassess q1hr
[2020-11-04] MEDS ORDERED: ONDANSETRON 2MG/ML, 2ML IVPush ONE (19:30)
[2020-11-04] MEDS ORDERED: ONDANSETRON 2MG/ML, 2ML ONE (19:45)
[2020-11-04 21:00] VITALS: BP 126/81
== END 2020-11-04 21:30 | disposition home or self-care (01) ==
LOC: ED 19:55
DX: G43.909 Migraine, unspecified, not intractable, without status migrainosus (principal); Z20.822 Contact with and (suspected) exposure to COVID-19; R11.2 Nausea with vomiting, unspecified; B34.9 Viral infection, unspecified; R00.0 Tachycardia, unspecified; E11.65 Type 2 diabetes mellitus with hyperglycemia; Z90.89 Acquired absence of other organs; Z90.49 Acquired absence of other specified parts of digestive tract
CPT/HCPCS: 36415; 71045; 80053; 81001; 81025; 82010; 82803; 82962; 83605; 83690; 84145; 84443; 85025; 87400; 93005; 96361; 96374; 96375; 99285; J1200; J1815; J1885; J2405; J2765; J7030; U0003